=== PATIENT | male | born 1980 | race Caucasian/White ===

== ENCOUNTER → 2020-01-25 07:56 | Outpatient (CLI) | payer OTHER, SELFPAY ==
--- NOTE | 2020-01-25 | DI.ECHO.S_ITS ---
[facility]+ [facility] +---------+ : : [address] : [place] [address] : : : : [id number] : : : : Phone: [phone]+ Echocardiogram Report + + :Name: BLAYNE AN Study Date: 01/25/2020 Height: 68 in : :[facility] Weight: 231 lb : : Gender: Male BSA: 2.2 m2 : :: 1980 Age: 39 yrs BP: 118/88 mmHg: :Reason For Study: ANGINA : : Performed By: Juan Hernandez : :Referring: [email or web address] : + + Interpretation Summary Normal echo study. Procedure: A two-dimensional transthoracic echocardiogram with color flow and Doppler was performed. The study quality was technically adequate. There is no prior echocardiogram noted for this patient. The patient was in normal sinus rhythm during the exam. Left Ventricle: The left ventricle is normal in size. There is normal left ventricular wall thickness. The ejection fraction is estimated to be 60-65%. There are no focal wall motion abnormalities. Right Ventricle: The right ventricle is normal in size and function. Atria: The left atrial size is normal. Right atrial size is normal. The interatrial septum is intact with no evidence for an atrial septal defect. Mitral Valve: The mitral valve is normal in structure and function. There is trace mitral regurgitation. Aortic Valve: The aortic valve is trileaflet. The aortic valve opens well. No aortic regurgitation is present. Tricuspid Valve: The tricuspid valve is normal in structure and function. There is a trace or physiologic amount of tricuspid regurgitation. Pulmonary artery pressures cannot be estimated because of the lack of a measurable TR jet velocity. Pulmonic Valve: The pulmonic valve is normal in structure and function. There is no pulmonic valvular regurgitation. Great Vessels: The aortic root is normal size. The dimensions of the ascending aorta are normal. The pulmonary artery is normal size. The IVC is of normal diameter and collapses greater than 50% with a sniff. This suggests a low right atrial pressure of 3 mm Hg. Pericardium/ Pleura There is no pericardial effusion. There is no pleural effusion. MMode/2D Measurements & Calculations LVIDd: 5.4 cm LVOT diam: 2.2 cm LVIDs: 3.7 cm Ao root diam: 3.3 cm FS: 30.8 % asc Aorta Diam: 3.0 cm EPSS: 0.51 cm Ao Arch Diam (Prox Trans): 2.8 cm IVSd: 0.74 cm LVPWd: 0.78 cm LV cespedes. diameter/BSA (cm/m^2): 2.5 LV sys. diameter/BSA (cm/m^2): 1.7 LA dimension: 3.6 cm RA long axis: 4.4 cm LA A2 area: 19.7 cm2 RA area: 19.1 cm2 LA A4 area: 21.0 cm2 RA vol: 70.5 ml LA length (vol): 6.2 cm RA : 32.4 ml/m2 LA vol: 56.2 ml IVC diam: 2.0 cm LA vol index: 25.9 ml/m2 TAPSE: 1.5 cm Doppler Measurements & Calculations Ao V2 max: 136.7 cm/sec LVOT Max Quinton: 109.1 cm/sec Ao V2 mean: 108.1 cm/sec LV V1 max P.8 mmHg Ao max P.5 mmHg LV V1 VTI: 20.6 cm Ao mean P.9 mmHg KAMARI(I,D): 2.7 cm2 Ao V2 VTI: 29.2 cm KAMARI(V,D): 3.0 cm2 sev ratio: 0.71 KAMARI indexed to BSA (cm^2/m^2): 1.2 MV E max quinton: 84.5 cm/sec PA V2 max: 99.4 cm/sec MV A max quinton: 63.5 cm/sec PA V2 mean: 73.3 cm/sec MV E/A: 1.3 PA mean P.3 mmHg Med Peak E' Quinton: 9.3 cm/sec PA pr(Accel): 22.5 mmHg E/E' med: 9.1 Lat Peak E' Quinton: 10.7 cm/sec E/E' lat: 7.9 E/e' average: 8.5 MV dec time: 0.20 sec SV(LVOT): 77.8 ml Electronically signed by: Dre Weeks on Reading Physician:01/25/2020 02:30 PM
== END ==
PROVIDERS: Referring Provider Neuromusculoskeletal Medicine, Sports Medicine; Visit Provider Neuromusculoskeletal Medicine, Sports Medicine
DX: I20.9 Angina pectoris, unspecified (principal)
CPT/HCPCS: 93306